=== PATIENT | male | born 1980 | race Two or more races ===

== ENCOUNTER 2022-12-06 01:48 | Emergency (ER) | payer OTHER ==
[~2022-12-06] VITALS: Ht 175.3 cm; Wt 88.5 kg
[2022-12-06] MEDS ORDERED: ATORVASTATIN CA20 MG PO (01:56)
[2022-12-06] MEDS ORDERED: LISINOPRIL10 MG PO (01:56)
[2022-12-06] MEDS ORDERED: ALPRAZOLAM1 MG PO (02:04)
== END 2022-12-06 02:19 | disposition home or self-care (01) ==
LOC: ER 01:48
DX: R00.2 Palpitations (principal); I10 Essential (primary) hypertension